=== PATIENT | male | born 1950 | race Asian ===

== ENCOUNTER 2018-07-02 07:47 | Day surgery (SDC) | payer BC, OTHER ==
[2018-07-01 15:53] VITALS: BMI 24.3
[2018-07-02] MEDS ORDERED: PROPOFOL 20 ML ONE ×2 (07:53)
[2018-07-02] MEDS ORDERED: LIDOCAINE HCL/PF 2% SDV 5ML VIAL ONE (07:54)
[2018-07-02 08:48] VITALS: TEMP 97.8
[2018-07-02 09:31] VITALS: BP 110/72; PULSE 60
== END 2018-07-02 09:30 | disposition home or self-care (01) ==
LOC: FASU-ENDO 07:47
PROVIDERS: ATTEND Internal Medicine Gastroenterology
PROC: 0DJD8ZZ Inspection of Lower Intestinal Tract, Via Natural or Artificial Opening Endoscopic (ICD-10-PCS; principal; 2018-07-02 08:21)
DX: Z12.11 Encounter for screening for malignant neoplasm of colon (principal); Z80.0 Family history of malignant neoplasm of digestive organs